=== PATIENT | male | born 1970 | race Caucasian/White ===

== ENCOUNTER 2018-02-10 21:50 | Observation (INO) | payer MEDICARE ==
[2018-02-10 22:52] LABS: BASOPHILS 0.3 % (0-2); EOSINOPHILS 3.2 % (0-7); HEMATOCRIT 45.3 % (42.0-54.0); HEMOGLOBIN 16.1 g/dL (13.5-17.5); IMMATURE GRANULOCYTES 0.3 % (0-5); LYMPHOCYTES 19.1 % (15-50); MCH 34.1 pg (26.0-34.0); MCHC 35.5 g/dL (31.0-37.0); MEAN PLATELET VOLUME 8.5 fL (7.4-10.4); MONOCYTES 9.4 % (2-11); NEUTROPHILS 67.7 % (40-80); PLATELET COUNT 175 10x3/uL (130-400); RBC 4.72 10x6/uL (4.20-6.10); RDW 12.4 % (11.5-14.5); WBC 6.2 10x3/uL (4.8-10.8)
[2018-02-10 23:03] LABS: INR 0.94 (0.85-1.17); PROTIME 12.2 SECONDS (11.6-15.0)
[2018-02-10 23:04] LABS: APTT 24.7 SECONDS (22.8-39.4)
[2018-02-10 23:06] LABS: D-DIMER-QUANTITATIVE 0.32 ug/mLFEU (0.20-0.54)
[2018-02-10 23:13] LABS: ALBUMIN 3.9 g/dL (3.4-5.0); ALKALINE PHOSPHATASE 87 U/L (46-116); ALT (SGPT) 46 U/L (10-68); BILIRUBIN - TOTAL 0.44 mg/dL (0.2-1.3); CALC OSMOLALITY 275 mosm/kg (275-300); CALCIUM 9.5 mg/dL (8.5-10.1); CARBON DIOXIDE 26.3 mmol/L (21.0-32.0); CHLORIDE - SERUM 102 mmol/L (98-107); CREATININE - SERUM 1.2 mg/dL (0.6-1.3); GLUCOSE 97 mg/dL (74-106); POTASSIUM - SERUM 5.3 mmol/L (3.5-5.1); PROTEIN - SERUM 7.4 g/dL (6.4-8.2); SODIUM 136 mmol/L (136-145); UREA NITROGEN 23 mg/dL (7-18); eGFR NON AFRICAN AMERICAN 69 mL/min (90-120)
[2018-02-10 23:24] LABS: CKMB 1.1 U/L (0.0-3.6); CREATINE KINASE 70 UL (21-232)
[2018-02-10 23:26] LABS: TROPONIN-I < 0.017 ng/mL (0.000-0.060)
[2018-02-11] MEDS ORDERED: CATAPRES0.2 MG PO ×2 (09:35→09:47)
[2018-02-11] MEDS ORDERED: LOVASTATIN40 MG PO ×2 (09:36→09:47)
[2018-02-11] MEDS ORDERED: NADOLOL80 MG PO ×2 (09:36→09:47)
[2018-02-11] MEDS ORDERED: LOTENSIN40 MG PO ×2 (09:37→09:46)
[2018-02-11] MEDS ORDERED: ALDACTONE25 MG PO ×2 (09:38→09:47)
[2018-02-11] MEDS ORDERED: CARDIZEM CD180 MG PO ×2 (09:39→09:46)
[2018-02-11] MEDS ORDERED: LAMICTAL100 MG PO ×2 (09:40→09:48)
[2018-02-11] MEDS ORDERED: CLONAZEPAM2 MG/TAB PO (09:40)
[2018-02-11] MEDS ORDERED: ZYPREXA7.5 MG PO ×2 (09:41→09:47)
[2018-02-11] MEDS ORDERED: TRILEPTAL600 MG PO ×2 (09:42→09:48)
[2018-02-11] MEDS ORDERED: CHLORTHALIDONE25 MG PO (09:49)
== END 2018-02-11 10:53 | disposition home or self-care (01) ==
LOC: D.ER 21:50 → D.EDHOLD 02-11 01:36 → OBSVTIME 02-11 01:36 → D.EDHOLD 02-11 01:36
PROVIDERS: Family Medicine
DX: I10 Essential (primary) hypertension (principal); E78.5 Hyperlipidemia, unspecified; F31.9 Bipolar disorder, unspecified; F41.9 Anxiety disorder, unspecified

== ENCOUNTER → 2018-09-01 09:41 | Outpatient (CLI) | payer MEDICARE ==
[~2018-09-01 09:41] MED LIST: ALDACTONE25 MG PO; CARDIZEM CD180 MG PO; CATAPRES0.2 MG PO; CHLORTHALIDONE25 MG PO; CLONAZEPAM2 MG/TAB PO; LAMICTAL100 MG PO; LOTENSIN40 MG PO; LOVASTATIN40 MG PO; NADOLOL80 MG PO; TRILEPTAL600 MG PO; ZYPREXA7.5 MG PO
== END | disposition home or self-care (01) ==
LOC: D.RT 09:41
DX: J44.9 Chronic obstructive pulmonary disease, unspecified (principal)

== ENCOUNTER 2018-10-27 15:30 | Emergency (ER) | payer MEDICARE ==
[~2018-10-27] VITALS: Ht 182.9 cm; Wt 112.7 kg
[2018-10-27 15:32] VITALS: BP 165/102; Ht 182.9 cm; Wt 112.7 kg
[2018-10-27] MEDS ORDERED: AVAPRO300 MG PO (15:34)
[2018-10-27] MEDS ORDERED: KLONOPIN0.5 MG PO (15:34)
[2018-10-27] MEDS ORDERED: NEURONTIN 300300 MG PO (15:35)
[2018-10-27] MEDS ORDERED: SAPHRIS5 MG SL (15:36)
[2018-10-27] MEDS ORDERED: CARDURA4 MG PO (15:37)
[2018-10-27 15:53] LABS: BASOPHILS 0.2 % (0-2); EOSINOPHILS 3.1 % (0-7); HEMATOCRIT 47.7 % (42.0-54.0); HEMOGLOBIN 17.2 g/dL (13.5-17.5); IMMATURE GRANULOCYTES 0.3 % (0-5); LYMPHOCYTES 14.6 % (15-50); MCH 33.7 pg (26.0-34.0); MCHC 36.1 g/dL (31.0-37.0); MCV 93.5 fL (80.0-100.0); MEAN PLATELET VOLUME 9.5 fL (7.4-10.4); MONOCYTES 7.6 % (2-11); NEUTROPHILS 74.2 % (40-80); RDW 12.6 % (11.5-14.5); WBC 12.1 10x3/uL (4.8-10.8)
[2018-10-27 15:59] LABS: PLATELET COUNT 212 10x3/uL (130-400)
[2018-10-27 16:02] LABS: APTT 26.4 SECONDS (22.8-39.4); INR 0.99 (0.85-1.17); PROTIME 12.6 SECONDS (11.6-15.0)
[2018-10-27 16:08] LABS: ALBUMIN 4.5 g/dL (3.4-5.0); ALKALINE PHOSPHATASE 88 U/L (46-116); ALT (SGPT) 41 U/L (10-68); BILIRUBIN - TOTAL 0.54 mg/dL (0.2-1.3); CALC OSMOLALITY 284 mosm/kg (275-300); CHLORIDE - SERUM 102 mmol/L (98-107); CREATININE - SERUM 1.7 mg/dL (0.6-1.3); GLUCOSE 106 mg/dL (74-106); POTASSIUM - SERUM 4.4 mmol/L (3.5-5.1); PROTEIN - SERUM 8.4 g/dL (6.4-8.2); SODIUM 139 mmol/L (136-145); UREA NITROGEN 33 mg/dL (7-18); eGFR NON AFRICAN AMERICAN 46 mL/min (90-120)
[2018-10-27 16:20] LABS: CKMB 1.1 U/L (0.0-3.6); CREATINE KINASE 126 UL (21-232); MAGNESIUM - SERUM 1.9 mg/dL (1.8-2.4)
[2018-10-27 16:32] LABS: TROPONIN-I < 0.017 ng/mL (0.000-0.060)
== END 2018-10-27 18:55 | disposition home or self-care (01) ==
LOC: D.ER 15:30
PROVIDERS: Family Medicine
DX: I10 Essential (primary) hypertension (principal); F41.9 Anxiety disorder, unspecified; F17.200 Nicotine dependence, unspecified, uncomplicated

== ENCOUNTER 2018-10-30 17:48 | Emergency (ER) | payer MEDICARE ==
[~2018-10-30] VITALS: Ht 182.9 cm; Wt 112.7 kg
[~2018-10-30 17:48] MED LIST changes: +AVAPRO300 MG PO; +CARDURA4 MG PO; +KLONOPIN0.5 MG PO; +NEURONTIN 300300 MG PO; +SAPHRIS5 MG SL
[2018-10-30 17:51] VITALS: Ht 182.9 cm; Wt 112.7 kg
[2018-10-30 19:02] LABS: BASOPHILS 0.1 % (0-2); EOSINOPHILS 3.5 % (0-7); HEMATOCRIT 43.4 % (42.0-54.0); HEMOGLOBIN 15.3 g/dL (13.5-17.5); IMMATURE GRANULOCYTES 0.1 % (0-5); LYMPHOCYTES 18.6 % (15-50); MCH 33.2 pg (26.0-34.0); MCHC 35.3 g/dL (31.0-37.0); MCV 94.1 fL (80.0-100.0); MEAN PLATELET VOLUME 9.4 fL (7.4-10.4); MONOCYTES 4.7 % (2-11); PLATELET COUNT 184 10x3/uL (130-400); RBC 4.61 10x6/uL (4.20-6.10); RDW 12.5 % (11.5-14.5); WBC 7.6 10x3/uL (4.8-10.8)
[2018-10-30 19:12] LABS: ALBUMIN 4.2 g/dL (3.4-5.0); ALKALINE PHOSPHATASE 71 U/L (46-116); ALT (SGPT) 34 U/L (10-68); CALC OSMOLALITY 281 mosm/kg (275-300); CALCIUM 9.9 mg/dL (8.5-10.1); CARBON DIOXIDE 25.3 mmol/L (21.0-32.0); CHLORIDE - SERUM 103 mmol/L (98-107); CREATININE - SERUM 1.3 mg/dL (0.6-1.3); GLUCOSE 122 mg/dL (74-106); POTASSIUM - SERUM 4.5 mmol/L (3.5-5.1); PROTEIN - SERUM 7.6 g/dL (6.4-8.2); SODIUM 138 mmol/L (136-145); UREA NITROGEN 26 mg/dL (7-18); eGFR NON AFRICAN AMERICAN 63 mL/min (90-120)
[2018-10-30 19:17] LABS: TROPONIN-I < 0.017 ng/mL (0.000-0.060)
[2018-10-30 20:06] VITALS: BP 141/85
== END 2018-10-30 20:06 | disposition home or self-care (01) ==
LOC: D.ER 17:48
PROVIDERS: Family Medicine
DX: I10 Essential (primary) hypertension (principal); F17.200 Nicotine dependence, unspecified, uncomplicated

== ENCOUNTER 2019-02-15 09:16 | Emergency (ER) | payer MEDICARE ==
[~2019-02-15] VITALS: Ht 182.9 cm; Wt 102.3 kg
[2019-02-15 09:19] VITALS: Ht 182.9 cm; Wt 102.3 kg
[2019-02-15 09:49] LABS: BASOPHILS 0.1 % (0-2); EOSINOPHILS 3.2 % (0-7); HEMATOCRIT 39.8 % (42.0-54.0); HEMOGLOBIN 14.6 g/dL (13.5-17.5); IMMATURE GRANULOCYTES 0.4 % (0-5); LYMPHOCYTES 23.3 % (15-50); MCH 32.7 pg (26.0-34.0); MCHC 36.7 g/dL (31.0-37.0); MCV 89.2 fL (80.0-100.0); MEAN PLATELET VOLUME 8.9 fL (7.4-10.4); MONOCYTES 6.5 % (2-11); NEUTROPHILS 66.5 % (40-80); PLATELET COUNT 204 10x3/uL (130-400); RBC 4.46 10x6/uL (4.20-6.10); RDW 12.7 % (11.5-14.5); WBC 8.4 10x3/uL (4.8-10.8)
[2019-02-15 10:05] LABS: ALBUMIN 4.2 g/dL (3.4-5.0); ANION GAP 15.5 mmol/L (8-16); BILIRUBIN - TOTAL 0.41 mg/dL (0.2-1.3); CALCIUM 9.5 mg/dL (8.5-10.1); CARBON DIOXIDE 25.9 mmol/L (21.0-32.0); CREATININE - SERUM 1.2 mg/dL (0.6-1.3); MAGNESIUM - SERUM 1.5 mg/dL (1.8-2.4); POTASSIUM - SERUM 4.4 mmol/L (3.5-5.1); PROTEIN - SERUM 7.5 g/dL (6.4-8.2)
[2019-02-15 10:22] LABS: APPEARANCE CLEAR (CLEAR); BILIRUBIN NEGATIVE (NEGATIVE); COLOR STRAW (YELLOW); GLUCOSE NEGATIVE (NEGATIVE); KETONE NEGATIVE (NEGATIVE); NITRITE NEGATIVE (NEGATIVE); PROTEIN NEGATIVE (NEGATIVE); UROBILINOGEN NORMAL (NORMAL)
[2019-02-15 10:30] LABS: CKMB 0.9 U/L (0.0-3.6); CREATINE KINASE 63 UL (21-232); THYROID STIMULATING HORMONE 0.89 uIU/mL (0.36-3.74); TROPONIN-I < 0.017 ng/mL (0.000-0.060)
[2019-02-15 10:32] LABS: UDS - AMPHET NEGATIVE QUAL (NEGATIVE); UDS - BARB NEGATIVE QUAL (NEGATIVE); UDS - BENZO NEGATIVE QUAL (NEGATIVE); UDS - COCAINE NEGATIVE QUAL (NEGATIVE); UDS - OPIATE NEGATIVE QUAL (NEGATIVE); UDS - PCP NEGATIVE QUAL (NEGATIVE); UDS - THC POSITIVE QUAL (NEGATIVE)
[2019-02-15] MEDS ORDERED: CELEXA20 MG PO (12:56)
[2019-02-15 13:15] VITALS: BP 142/78
== END 2019-02-15 13:16 | disposition home or self-care (01) ==
LOC: D.ER 09:16
PROVIDERS: Family Medicine
DX: F31.9 Bipolar disorder, unspecified (principal)

== ENCOUNTER 2020-05-14 16:52 | Emergency (ER) | payer MEDICARE ==
[~2020-05-14 16:52] MED LIST changes: +CELEXA20 MG PO
[2020-05-14 17:09] VITALS: Ht 182.9 cm
== END 2020-05-14 17:36 ==
LOC: D.ER 16:52
DX: R46.89 Other symptoms and signs involving appearance and behavior (principal); I10 Essential (primary) hypertension; Z53.20 Procedure and treatment not carried out because of patient's decision for unspecified reasons